=== PATIENT | female | born 2000 | race Caucasian/White ===

== ENCOUNTER 2023-03-20 22:09 | Day surgery (SDC) | payer OTHER ==
[2023-03-20 22:55] VITALS: BMI 24.7
[2023-03-20] MEDS ORDERED: Acetaminophen 500 MG TAB PO SCH (23:45)
[2023-03-21 00:36] LABS: Bilirubin Neg (Negative); Glucose, Urine (Dipstick) Normal (Negative); Ketone, Urine 150 mg/dL (Negative); Leukocyte Negative (Negative); Nitrite Negative (Negative); Protein, Urine (Dipstick) 15 mg/dl (Neg-Trace); Specific Gravity, Urine 1.015 (1.005-1.030); Urobilinogen Normal mg/dL (Less than 2)
[2023-03-21 00:45] LABS: Clarity Clear (Clear)
[2023-03-21 01:05] LABS: RBC/HPF 0-3 HPF (0-3)
[2023-03-21 01:06] LABS: Blood, Urine 25 (Negative); Squamous Epithelial None Seen HPF (0-3); WBC/HPF 0-3 HPF (0-3)
[2023-03-21 01:07] LABS: Bacteria/HPF None Seen HPF (None Seen)
== END 2023-03-21 01:58 | disposition home or self-care (01) ==
LOC: CSHLD/OP 22:09
PROVIDERS: ATTEND Obstetrics & Gynecology
DX: O46.93 Antepartum hemorrhage, unspecified, third trimester (principal); O99.891 Other specified diseases and conditions complicating pregnancy; N89.8 Other specified noninflammatory disorders of vagina; R35.0 Frequency of micturition; O24.410 Gestational diabetes mellitus in pregnancy, diet controlled; Z3A.32 32 weeks gestation of pregnancy
CPT/HCPCS: 36416; 81003; 81015; 87086; 87480; 87510; 87660